=== PATIENT | female | born 1985 | race Two or more races ===

== ENCOUNTER 2017-07-08 17:34 | Emergency (ER) | payer OTHER ==
[~2017-07-08 17:34] MED LIST: NEOMYCIN/POLYMYXN/HC OTIC SOLUTION 10 ML BOTTLE AU SCH
[2017-07-08 17:52] VITALS: BP 142/93; PULSE 72; TEMP 98; BMI 27.8
--- NOTE | 2017-07-08 18:06 | PDOC ---
History of Present Illness - General History Source: Patient Exam Limitations: No Limitations - History of Present Illness Initial Comments: 07/08/17 18:38 History of Present illness:The patient is 32 year old female presents to the emergency department with left ear pain since 3 days ago. The patient reports she was cleaning her ears last with a Qtip when her hearing became muffled, the patient then use hydrogen peroxide to flush to clean her left ear. The patient reports when she woke up on Saturday morning she had a sharp intermittent pain in the L. ear, which radiates to her occiput and rates 9/10 in severity. The patient reports the pain is aggravated when swallowing or burping without any relieving factors. The patient reports a new onset of lightheadedness during exercise since the incident. Denies fever, chills, cough. Denies nausea, vomiting, constipation or diarrhea. Denies numbness, tingling, or vertigo. Denies any trauma to the head or loss of any sensations. Past Medical History: None reported Social History: Patient reports occasional alcohol use. Denies history of smoking or recreational drug use. Family History: None reported PCP: None reported. Last menstruation cycle: June 16 2017 Allergies: None reported. <Sakshi Zhou - Last Filed: 07/08/17 18:38> <Augustin Cruz - Last Filed: 07/08/17 18:41> - General Chief Complaint: Pain Stated Complaint: LEFT EAR PAIN Time Seen by Provider: 07/08/17 17:41 Past History <Sakshi Zhou - Last Filed: 07/08/17 18:38> - Past Medical History COPD: No Other medical history: DENIES - Suicide/Smoking/Psychosocial Hx Smoking History: Never smoked Have you smoked in the past 12 months: No Information on smoking cessation initiated: No Hx Alcohol Use: Yes (SOCIAL) Drug/Substance Use Hx: No Substance Use Type: Alcohol <Augustin Cruz - Last Filed: 07/08/17 18:41> - Past Medical History Allergies/Adverse Reactions: Allergies Allergy/AdvReac Type Severity Reaction Status Date / Time No Known Allergies Allergy Verified 07/08/17 17:36 Home Medications: Ambulatory Orders Neomycin/Polymyxn/Hc [Cortisporin Otic Suspenstion -] 4 drop AU Q4HWA #1 bottle 04/30/18 Review of Systems - Review of Systems Able to Perform ROS?: Yes Comments:: 07/08/17 18:38 CONSTITUTIONAL: Absent: fever, no chills, no fatigue EYES: Absent: visual changes ENT: (+) Left ear pain Absent: no sore throat CARDIOVASCULAR: Absent: chest pain, no palpitations RESPIRATORY: Absent: cough, no SOB GI: Absent: abdominal pain, no nausea, no vomiting, no constipation, no diarrhea GENITOURINARY: Absent: dysuria, no frequency, no hematuria MUSKULOSKELETAL: Absent: back pain, no arthralgia, no myalgia SKIN: Absent: rash NEURO: Absent: headache <Sakshi Zhou - Last Filed: 07/08/17 18:38> *Physical Exam - Vital Signs Last Vital Signs Temp Pulse Resp BP Pulse Ox 98 F 72 16 142/93 100 07/08/17 17:35 07/08/17 17:35 07/08/17 17:35 07/08/17 17:35 07/08/17 17:35 - Physical Exam Comments: 07/08/17 18:39 GENERAL: Well-appearing, well-nourished. No apparent distress. HEENT: (+) Bilateral cerumen impaction. (+) no cervical adenopathy. Nose and Throat: clear Normocephalic, atraumatic. PERRL, EOM intact. CARDIOVASCULAR: Normal S1, S2. Regular rate and rhythm. PULMONARY: Clear to auscultation bilaterally. ABDOMEN: Soft, non-distended, non-tender. EXTREMITIES: Normal ROM in all four extremities. No gross deformities. SKIN: Warm, dry. No rash NEUROLOGICAL: No focal neurological deficits. <Sakshi Zhou - Last Filed: 07/08/17 18:38> - Vital Signs Last Vital Signs Temp Pulse Resp BP Pulse Ox 98 F 72 16 142/93 100 07/08/17 17:35 07/08/17 17:35 07/08/17 17:35 07/08/17 17:35 07/08/17 17:35 <Augustin Cruz - Last Filed: 07/08/17 18:41> Medical Decision Making - Medical Decision Making 07/08/17 18:06 Patient with ear pain and bilateral cerumen impactions. Decreased hearing. No sore throat, other URI symptoms, cough, or seasonal ALLERGIES Gentle ear irrigation was performed with cerumen expelled bilaterally. Both TMs appear opaque. There is irritation of the canals bilaterally, possibly from the use of Q-tips. Impression bilateral cerumen impactions, otitis externa Plan: Antibiotic eardrops and ENT follow-up. Patient in no significant pain or other distress upon discharge to follow-up as directed <Augustin Cruz - Last Filed: 07/08/17 18:41> *DC/Admit/Observation/Transfer - Attestations Scribe Attestion: 07/08/17 18:39 Documentation prepared by Sakshi Zhou, acting as medical engineer for Augustin Cruz MD. <Sakshi Zhou - Last Filed: 07/08/17 18:38> - Discharge Dispostion Admit: No <Augustin Cruz - Last Filed: 07/08/17 18:41> Diagnosis at time of Disposition: Otitis externa Qualifiers: Otitis externa type: noninfectious Noninfectious otitis externa type: reactive Chronicity: acute Laterality: bilateral Qualified Code(s): H60.553 - Acute reactive otitis externa, bilateral Cerumen impaction Qualifiers: Laterality: bilateral Qualified Code(s): H61.23 - Impacted cerumen, bilateral - Discharge Dispostion Disposition: HOME Condition at time of disposition: Improved - Prescriptions Prescriptions: Neomycin/Polymyxn/Hc [Cortisporin Otic Suspenstion -] 4 drop AU Q4HWA #1 bottle - Referrals Referrals: Dung Cross MD [Staff Physician] - 1 week - Patient Instructions Printed Discharge Instructions: DI for Cerumen Impaction, DI for Otitis Externa Additional Instructions: See ENT specialist for further evaluation and treatment in 3-5 days.
[2017-07-08] MEDS ORDERED: NEOMYCIN/POLYMYXN/HC OTIC SUSPENSION 10 ML BOTTLE ONE (18:56)
[2017-07-09] MEDS ORDERED: NEOMYCIN/POLYMYXN/HC OTIC SOLUTION 10 ML BOTTLE AU ONE (18:54)
== END 2017-07-08 19:04 | disposition home or self-care (01) ==
LOC: FER 17:34
DX: H60.5 Acute noninfective otitis externa (principal); H61.23 Impacted cerumen, bilateral
CPT/HCPCS: 99281-25